=== PATIENT | female | born 1960 | race Caucasian/White ===

== ENCOUNTER 2020-12-02 08:18 | Day surgery (SDC) | payer OTHER ==
[2020-12-02] MEDS: Ringers Lactate 1,000 ML IV ONE ×4 (08:15→14:30)
[2020-12-02 08:19] LABS: Urine Appearance CLEAR (Clear); Urine Bilirubin NEGATIVE (Negataive); Urine Blood NEGATIVE (Negative); Urine Color YELLOW (Yellow); Urine Glucose NEGATIVE (Negative); Urine Protein NEGATIVE (Negative); Urine Specific Gravity 1.015 (1.005-1.030); Urine Urobilinogen 0.2 mg/dL (0.2-1.0)
[2020-12-02 08:23] LABS: Absolute Lymphocytes (CBC) 3.6 K/uL (0.7-4.9); Basophils % 0.9 % (0-1.3); Hematocrit 39.6 % (36.0-45.0); Lymphocytes % 46.4 % (15.3-44.8); MPV 9.3 fL (7.6-11.3); RBC Red Blood Cell Count 4.56 M/uL (3.86-4.86)
[2020-12-02 08:31] LABS: Urine Microscopic Reflex NO UMIC
[2020-12-02] MEDS ORDERED: NS 0.9% VIAL 40 ML ONE (08:53)
--- NOTE | 2020-12-02 08:57 | RAD REPORT ---
EXAM DESCRIPTION: RAD - Chest Pa And Lat (2 Views) - 12/02/2020 8:36 am CLINICAL HISTORY: preoppending facial surgery COMPARISON: None TECHNIQUE: Frontal and lateral views of the chest were obtained. FINDINGS: The lungs are clear of failure, infiltrate or mass lesion. Interstitial pattern is mildly prominent believed to be baseline for the patient. Heart size is normal and central vasculature is within normal limits. No pleural effusion or pneumothorax seen. No acute bone finding suspected. Th ere is slight wedging of a vertebral body near the thoracolumbar junction. No associated lytic, blast ic or expansile component. No comparison is available to establish stability. Acute compression is un likely given the history of preop examination. No aortic abnormality. IMPRESSION: No acute cardiopulmonary process. Approximately 15% wedge compression of a lower thoracic vertebral body. This is probably chronic but no comparison is available. No aggressive characteristics seen.
[2020-12-02] MEDS ORDERED: MIDAZOLAM HCL 2 MG/2 ML INJ ONE ×2 (08:59→15:25)
[2020-12-02] MEDS ORDERED: propofoL 200 MG/20 ML VIAL IV ONE (08:59)
[2020-12-02] MEDS ORDERED: FENTANYL CITR 250 MCG/5 ML ONE (09:00)
[2020-12-02] MEDS ORDERED: SCOPOLAMINE HYDROBROMIDE PATCH TD ONE (09:00)
[2020-12-02] MEDS ORDERED: LIDOCAINE 2% MPF 5 ML VIAL ONE (09:00)
[2020-12-02] MEDS ORDERED: ROCURONIUM 50 MG/5 ML VIAL IV ONE (09:00)
[2020-12-02] MEDS ORDERED: ONDANSETRON 4 MG/2 ML VIAL ONE (09:00)
[2020-12-02] MEDS ORDERED: KETOROLAC 30 MG/ML INJ ONE (09:00)
[2020-12-02] MEDS ORDERED: dexAMETHasone 10 MG/ML VIAL ONE (09:00)
[2020-12-02 09:07] LABS: Blood Morphology Comment NOT SEEN (NOT SEEN); Platelet Estimate ADEQ
[2020-12-02] MEDS: LIDOCAINE 1% W/EPI 1:100,000 MDV 20 ML VIAL ONE ×2 (09:14→13:15)
[2020-12-02] MEDS: CEFAZOLIN/SWI 1gm 1 GM/10 ML SYR ONE ×2 (09:15→09:55)
[2020-12-02] MEDS ORDERED: LANO/MINERAL OIL/PETRO 3.5 GM ONE (09:53)
[2020-12-02] MEDS ORDERED: NS 0.9% VIAL 10 ML ONE (11:19)
[2020-12-02] MEDS ORDERED: VECURONIUM 10 MG/VIAL IV ONE (11:19)
[2020-12-02] MEDS ORDERED: EPINEPHRINE/PF 1 MG/ML AMP ONE (13:30)
[2020-12-02] MEDS ORDERED: NA CHLORIDE 0.9% 1,000 ML ONE (13:31)
[2020-12-02] MEDS ORDERED: Mastisol Adhesive Liq ONE (14:41)
[2020-12-02] MEDS ORDERED: GLYCOPYRROLATE 0.2 MG/ML SYR ONE (14:51)
[2020-12-02] MEDS ORDERED: NEOSTIGMINE 1 MG/ML -5 ML ONE (14:53)
[2020-12-02] MEDS ORDERED: FENTANYL CITR 100 MCG/2 ML ONE (15:40)
--- NOTE | 2020-12-02 16:42 | EKG ---
Test Date: 2020-12-02 Test Time: 07:15:09 [employer]ime Plant Operator: ANSHU MEASUREMENT RESULTS: Intervals: Rate: 53 WI: 186 QRSD: 84 QT: 410 QTc: 384 [place]: P: 69 WI: 186 QRS: 83 T: 76 INTERPRETIVE STATEMENTS: Sinus bradycardia Otherwise normal ECG No previous ECG available for comparison Electronically Signed On 12-02-20 16:42:03 CDT by Nehemias Frank
[2020-12-02] MEDS ORDERED: CODEINE 30MG/APAP 300MG TAB ONE (17:01)
[2020-12-02 17:30] VITALS: BP 112/67; TEMP 96.9; O2SAT 97
--- NOTE | 2020-12-03 08:34 | OP ---
Surgeon: Lio Hodge MD Preoperative Diagnosis: rhytides forehead, face, neck, excess upper lid skin. Postoperative Diagnosis: rhytides forehead, face, neck, excess upper lid skin. Procedure: Invasive brow lift, upper blepharoplasty, fat transfer from abdomen and face. Anesthesia: General. Procedure In Detail: After satisfactory induction of general anesthesia, face was prepped with DuraPrep, dry sterile drapes were applied in usual manner. The patient had been infused prior to prepping with 0.5% lidocaine over the frontal hairline incision and the right and left hemiface. Then, the incision was made preauricular, then extended to the pre hairline going from [id number] with scalpel first and then down to periosteum. The flap was elevated as we approached the orbital rim. tenotomy scissors were used to spread the soft tissue. The ligament attachments were . Nerves and arteries left intact. The business economist was then divided with electrocautery. Then the excess skin was cut off and the wound was essentially closed. We used a running lock suture of 4-0 PDS suture from the frontal hairline junction on both sides to where the hair was encountered, stapled the wound at this point. Then, we did the face lift. The previous brow lift incision was extended preauricular, postauricular, and posterior hairline. Flap was elevated in subcutaneous position using the scalpel or face-lift scissors toward nasolabial fold and under the neck to the midline being below the mandible area. This was done with sharp dissection and scissors. Electrocautery was used for hemostasis. After right side was done, left side was done in identical manner. Then returned to right side. Inspected the wound for hemostasis and then cut off excess skin. Brought 7 MAYURI out, posterior sewn in place with 2-0 silk and cortez maxi were placed. Then wound was closed from preauricular and then likely postauricular. After the right side was done, left side was done in identical manner. The patient then had upper eyelids injected with 1% xylocaine with epinephrine and then the area had been marked out for the intended incision. A scalpel was used to make incision approximately 8 mm above the ciliary margin. Then the flap was dissected using tenotomy scissors underneath the orbicularis muscle. Excess skin was cut off with tenotomy scissors. Electrocautery was used for hemostasis. Wound was closed with 6-0 Vicryl on the muscle, 6-0 Prolene laterally and 6-0 Prolene subcuticular medially. Left side was done in identical manner. Then the abdomen was prepped and draped in usual manner. Incision was made infraumbilically. 100 cc of saline with epinephrine was infiltrated and 40 cc were aspirated out. The patient had transverse to the upper lips, one on nasolabial fold, malar one on each side, and then on the forehead and approximately 1 cc over the chin. The wounds were left open. Dressings consisted of tincture of benzoin, Steri-Strips over the incision for the blepharoplasty. Then Xeroform, Kerlix, and Wade wrap. The patient tolerated procedure well, returned to Recovery. JORDYN/YOVANY Voice ID: [id number] Report ID: [id number]
== END 2020-12-02 17:25 | disposition home health service (06) ==
LOC: OR 08:18
PROVIDERS: ATTEND Specialist
PROC: 0J013ZZ Alteration of Face Subcutaneous Tissue and Fascia, Percutaneous Approach (ICD-10-PCS; 2020-12-02)
PROC: 0W020ZZ Alteration of Face, Open Approach (ICD-10-PCS; 2020-12-02)
PROC: 0W020ZZ Alteration of Face, Open Approach (ICD-10-PCS; 2020-12-02)
PROC: 080P0ZZ Alteration of Left Upper Eyelid, Open Approach (ICD-10-PCS; principal; 2020-12-02 09:00)
PROC: 080N0ZZ Alteration of Right Upper Eyelid, Open Approach (ICD-10-PCS; 2020-12-02 09:00)
DX: L98.8 Other specified disorders of the skin and subcutaneous tissue (principal); H02.34 Blepharochalasis left upper eyelid; H02.521 Blepharophimosis right upper eyelid
CPT/HCPCS: 93005; 85025; 36415; 81003; 71046; 15823; 15773; 67900; 15828; J2704; J0171; J2250 ×2; J3010 ×2; J1100; J2710; J0690; J7120 ×2; J7030; J2405